=== PATIENT | male | born 1965 | race Caucasian/White ===

== ENCOUNTER 2023-07-22 10:17 | Day surgery (SDC) | payer OTHER ==
[~2023-07-22] VITALS: Ht 188 cm; Wt 110.8 kg
[2023-07-22] MEDS ORDERED: BUPR75 PO (10:53)
[2023-07-22] MEDS ORDERED: BACL20 PO (10:53)
[2023-07-22] MEDS ORDERED: LEVSOD100 PO (10:54)
[2023-07-22] MEDS ORDERED: LISI20 PO (10:54)
[2023-07-22] MEDS ORDERED: PREG100 PO (10:55)
[2023-07-22] MEDS ORDERED: ACET325 PO (10:55)
--- NOTE | 2023-07-22 11:16 | NUR ---
07/22/23 1116 Lucy Platt PT RESTING COMFORTABLY IN BED. CALL LIGHT WITHIN REACH. BED IN LOWEST POSITION.
--- NOTE | 2023-07-22 12:55 | NUR ---
07/22/23 1255 Pati Toure 1 MG EPI ADDED TO THE FIRST BAG OF LR, PER ORDER, [facility] ELAM. 0.1ML EPI (1MG/ML) MIXED & VERIFIED W/ NS 10 MLS TO MAKE EPI 1:100,000 FOR INJECTION AT [facility] BY DR ELAM.
[2023-07-22 14:02] VITALS: BP 122/82
--- NOTE | 2023-07-22 15:12 | NUR ---
07/22/23 1512 Nestor Brantley IV REMOVED INTACT. SITE WNL.
== END 2023-07-22 14:50 | disposition home or self-care (01) ==
LOC: ORSCSDS 10:17
PROVIDERS: Orthopaedic Surgery
PROC: 0RNJ4ZZ Release Right Shoulder Joint, Percutaneous Endoscopic Approach (ICD-10-PCS; principal; 2023-07-22 11:45)
PROC: 0LN14ZZ Release Right Shoulder Tendon, Percutaneous Endoscopic Approach (ICD-10-PCS; principal; 2023-07-22 11:45)
DX: S46.001A Unspecified injury of muscle(s) and tendon(s) of the rotator cuff of right shoulder, initial encounter (principal); M75.41 Impingement syndrome of right shoulder; W01.0XXA Fall on same level from slipping, tripping and stumbling without subsequent striking against object, initial encounter; I10 Essential (primary) hypertension; E03.9 Hypothyroidism, unspecified; Z79.899 Other long term (current) drug therapy
CPT/HCPCS: J0171; J0690; J1100; J1885; J2250; J2405; J2704; J2710; J3010; J7120

== ENCOUNTER 2024-08-03 17:05 | Emergency (ER) | payer OTHER ==
[~2024-08-03] VITALS: Ht 188 cm; Wt 102.1 kg
[~2024-08-03 17:05] MED LIST: ACET325 PO; BACL20 PO; BUPR75 PO; LEVSOD100 PO; LISI20 PO; PREG100 PO
[2024-08-03 17:19] VITALS: BP 149/92
== END 2024-08-09 17:21 | disposition home or self-care (01) ==
LOC: ER 17:05
DX: S61.412A Laceration without foreign body of left hand, initial encounter (principal); W26.0XXA Contact with knife, initial encounter
CPT/HCPCS: 99282

== ENCOUNTER 2025-01-12 15:35 | Emergency (ER) | payer OTHER ==
[~2025-01-12] VITALS: Ht 188 cm; Wt 100.7 kg
[2025-01-12] MEDS ORDERED: ATORVASTATIN CA20 MG PO (16:23)
[2025-01-12] MEDS ORDERED: AMLODIPINE BES2.5 MG PO (16:23)
[2025-01-12] MEDS ORDERED: NORCO 7.5-3251 EAC1 PO (16:24)
[2025-01-12] MEDS ORDERED: EUTHYROX100 MC1 PO (16:26)
[2025-01-12 16:27] LABS: BASOPHILS ABSOLUTE AUTO 0.06 K/mm3 (0.00-0.23); BASOPHILS PERCENT AUTO 1 % (0-2); EOSINOPHILS ABSOLUTE AUTO 0.45 K/mm3 (0.00-0.68); EOSINOPHILS PERCENT AUTO 7 % (0-6); Hematocrit 43.6 % (37.0-53.0); Hemoglobin 14.7 g/dL (13.5-17.5); IMMATURE GRAN ABSOLUTE AUTO 0.06 K/mm3 (0.00-0.10); IMMATURE GRAN PERCENT AUTO 1 % (0-1); LYMPHOCYTES ABSOLUTE AUTO 1.12 K/mm3 (0.84-5.20); LYMPHOCYTES PERCENT AUTO 17 % (21-46); MONOCYTES ABSOLUTE AUTO 0.67 K/mm3 (0.16-1.47); MONOCYTES PERCENT AUTO 10 % (4-13); Mean Corpuscular HGB 28.5 pg (26.0-34.0); Mean Corpuscular HGB Conc 33.7 g/dL (31.5-36.5); Mean Corpuscular Volume 85 fL (80-100); NEUTROPHILS ABSOLUTE AUTO 4.44 K/mm3 (1.96-9.15); NEUTROPHILS PERCENT AUTO 65 % (41-73); RDW Coefficient Variation 13.4 % (11.7-14.2); RDW Standard Deviation 41.9 fL (35.1-46.3); Red Blood Cell Count 5.15 M/mm3 (4.30-5.90)
[2025-01-12] MEDS ORDERED: FERROUS GLUCON324 M7 PO (16:27)
[2025-01-12] MEDS ORDERED: LYRICA PO (16:28)
[2025-01-12 16:29] LABS: Albumin, Blood 3.8 g/dL (3.4-5.0); Albumin/Globulin Ratio 1.3 (0.8-1.8); Bilirubin, Total 0.4 mg/dL (0.1-1.0); Bun/Creatinine Ratio 15.4 (12.0-20.0); Calcium, Blood 8.9 mg/dL (8.5-10.1); Creatinine, Blood 0.91 mg/dL (0.60-1.20); Globulin, Blood 2.9 g/dL (2.2-4.0); Total Protein, Blood 6.7 g/dL (6.4-8.2)
[2025-01-12 16:57] LABS: Mean Platelet Volume 9.5 fL (9.1-12.4); Platelet Count 237 K/mm3 (150-400)
[2025-01-12 17:00] VITALS: BP 121/79
[2025-01-12 17:06] LABS: Influenza A, PCR NEGATIVE (NEGATIVE); Influenza B, PCR NEGATIVE (NEGATIVE); Resp Syncytial Virus, PCR NEGATIVE (NEGATIVE); SARS-Cov-2 (COVID-19) PCR, MMC NEGATIVE (NEGATIVE)
[2025-01-12] MEDS ORDERED: METO25ER PO (18:07)
== END 2025-01-12 18:20 | disposition home or self-care (01) ==
LOC: ER 15:35
PROVIDERS: Emergency Medicine
DX: I48.91 Unspecified atrial fibrillation (principal); E78.5 Hyperlipidemia, unspecified; I10 Essential (primary) hypertension; Z79.899 Other long term (current) drug therapy
CPT/HCPCS: 0241U; 71045; 80053; 83880; 84484; 85025; 93005; 93010; 99285-25